=== PATIENT | male | born 1940 | race Caucasian/White ===

== ENCOUNTER → 2022-08-27 | Outpatient (CLI) | payer MEDICARE ==
--- NOTE | 2022-08-27 11:56 | MR ---
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 FINDINGS: Diffusion weighted images demonstrate no evidence of a recent infarct or other diffusion abnormality. There is mild to moderate ventricular and sulcal prominence. There are scattered foci of T2 hyperinte nsity seen throughout the white matter bilaterally. Approximately 20-25 small scattered lesions are s een. Lesions are nonspecific in appearance and distribution. T2 Star weighted images show no suspicio us intraparenchymal blood product. Bilateral basal ganglia calcifications are suspected but should be correlated with CT to confirm. Midline structures demonstrate normal morphology. The craniocervical junction appears within normal limits. Normal vascular flow voids are present. The visualized sinuses are clear and the globes are i ntact. IMPRESSION: Mild to moderate diffuse cerebral atrophy and chronic small vessel ischemic change is pre sent.
== END | disposition home or self-care (01) ==
LOC: RADMRIMAIN 10:52
PROVIDERS: ATTEND Psychiatry & Neurology Neurology
DX: G31.9 Degenerative disease of nervous system, unspecified (principal); I67.82 Cerebral ischemia; I63.00 Cerebral infarction due to thrombosis of unspecified precerebral artery
CPT/HCPCS: 70551

== ENCOUNTER 2023-12-13 10:28 | Emergency (ER) | payer MEDICARE ==
[2023-12-13 11:09] LABS: Basophils # (A) 0.1 k/uL (0-0.2); Basophils % (A) 1 %; Eosinophils # (A) 0.3 k/uL (0-0.7); Eosinophils % (A) 3 %; HCT 43.5 % (39.0-53.0); HGB 14.6 gm/dL (13.0-17.5); Lymphocytes # (A) 0.7 k/uL (1.0-4.8); Lymphocytes % (A) 6 %; MCH 28.5 pg (25.0-35.0); MCHC 33.6 g/dL (31.0-37.0); MCV 84.7 fL (80.0-100.0); Mean Platelet Volume 7.5; Monocytes # (A) 0.6 k/uL (0-1.0); Monocytes % (A) 6 %; Neutrophils # (A) 8.8 k/uL (1.3-7.7); Neutrophils % (A) 84 %; Platelet Count 151 k/uL (150-450); RBC 5.14 m/uL (4.30-5.90); RDW 13.3 % (11.5-15.5); WBC 10.5 k/uL (3.8-10.6)
[2023-12-13 11:19] LABS: ALT 17 U/L (4-49); AST 29 U/L (17-59); African American GFR (CKD) >90 (>60 ml/min/1.73 sqM); Albumin 3.6 g/dL (3.5-5.0); Alkaline Phosphatase 96 U/L (38-126); Anion Gap 7 mmol/L; Blood Urea Nitrogen 12 mg/dL (9-20); Calcium 8.6 mg/dL (8.4-10.2); Carbon Dioxide 25 mmol/L (22-30); Chloride 97 mmol/L (98-107); Glucose 117 mg/dL (74-99); Magnesium 1.7 mg/dL (1.6-2.3); Non-African American GFR(CKD) 83 (>60 ml/min/1.73 sqM); Potassium 4.1 mmol/L (3.5-5.1); Sodium 129 mmol/L (137-145); Total Bilirubin 1.4 mg/dL (0.2-1.3)
--- NOTE | 2023-12-13 11:31 | ED ---
General Adult HPI - General Chief complaint: Weakness Stated complaint: Syncope with Fall Time Seen by Provider: 12/13/23 10:40 Source: patient, EMS, RN notes reviewed, old records reviewed Mode of arrival: EMS Limitations: no limitations - History of Present Illness Initial comments: This is an 83-year-old male who presents to the emergency department complaining of syncopal episode after getting out of the shower. Patient states he got other shower was a very hot shower he felt a little lightheaded when he started to fix his hair when he thought he might pass out so he sat down and then shortly thereafter he passed out it was only unresponsive for a couple of seconds. Patient denies any headache patient denies numbness weakness. Patient denies any chest pain palpitations difficulty breathing or shortness of breath at any time. Patient Nuys any recent fever chills or cough or patient denies is any recent nausea vomiting diarrhea. Patient denies any other symptoms at this time and in fact currently he is asymptomatic. Patient's heart rate while speaking to him got down to 36 at at 1 point in time. Patient states that he took his verapamil an hour and a half prior to taking a shower. - Related Data Home Medications Medication Instructions Recorded Confirmed Aspirin EC [Ecotrin Low Dose] 81 mg PO DAILY 06/28/16 12/13/23 [place]-3 Fatty Acids/Fish Oil [Fish 2 cap PO DAILY 06/28/16 12/13/23 Oil 1,000 mg Softgel] Donepezil HCl [Aricept] 20 mg PO DAILY 12/13/23 12/13/23 Finasteride [Proscar] 5 mg PO DAILY 12/13/23 12/13/23 Losartan Potassium [Cozaar] 100 mg PO DAILY 12/13/23 12/13/23 Meclizine [Antivert] 25 mg PO Q8H PRN 12/13/23 12/13/23 Potassium Chloride ER [K-Dur 10] 10 meq PO BID 12/13/23 12/13/23 Tamsulosin [Flomax] 0.4 mg PO DAILY 12/13/23 12/13/23 Verapamil Sr [Isoptin Sr] 240 mg PO DAILY 12/13/23 12/13/23 Previous Rx's Medication Instructions Recorded Verapamil Sr [Isoptin Sr] 120 mg PO DAILY #10 tab 12/13/23 Allergies Allergy/AdvReac Type Severity Reaction Status Date / Time Penicillins AdvReac Nausea & Verified 12/13/23 11:38 Vomiting, Hives Review of Systems ROS Statement: Those systems with pertinent positive or pertinent negative responses have been documented in the HPI. ROS Other: All systems not noted in ROS Statement are negative. Past Medical History Past Medical History: Eye Disorder, Hypertension, Osteoarthritis (OA) Additional Past Medical History / Comment(s): Chronic diverticulosis and polyps, L eye blindness. History of Any Multi-Drug Resistant Organisms: None Reported Past Surgical History: Appendectomy, Bowel Resection Additional Past Surgical History / Comment(s): 07/10/16 Low anterior resection. Other surgical hx: varicose veins on penis with stripping, cyst on tailbone removed in the 's, COLONOSCOPY Past Anesthesia/Blood Transfusion Reactions: No Reported Reaction Past Psychological History: No Psychological Hx Reported Smoking Status: Never smoker Past Alcohol Use History: None Reported Past Drug Use History: None Reported - Past Family History Brother(s) Family Medical History: Cancer Additional Family Medical History / Comment(s): STOMACH CANCER General Exam - General Exam Comments Initial Comments: GENERAL: Patient is well-developed and well-nourished. Patient is nontoxic and well- hydrated and is in no acute distress. ENT: Neck is soft and supple. No significant lymphadenopathy is noted. Oropharynx is clear. Moist mucous membranes. Neck has full range of motion without eliciting any pain. EYES: The sclera were anicteric and conjunctiva were pink and moist. Extraocular movements were intact and pupils were equal round and reactive to light. Eyelids were unremarkable. PULMONARY: Unlabored respirations. Good breath sounds bilaterally. No audible rales rhonchi or wheezing was noted. CARDIOVASCULAR: There is a regular rate and rhythm without any murmurs gallops or rubs. ABDOMEN: Soft and nontender with normal bowel sounds. SKIN: Skin is clear with no lesions or rashes and otherwise unremarkable. NEUROLOGIC: Patient is alert and oriented x3. Cranial nerves II through XII are grossly intact. Motor and sensory are also intact. Normal speech, volume and content. Symmetrical smile. MUSCULOSKELETAL: Normal extremities with adequate strength and full range of motion. No lower extremity swelling or edema. No calf tenderness. LYMPHATICS: No significant lymphadenopathy is noted PSYCHIATRIC: Normal psychiatric evaluation. 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 Patient EKG shows no ST segment elevation or depression Was pt. sent in by a medical professional or institution (SHAQUILLE Santoro, FULFILLMENT ASSOCIATE, urgent care, hospital, or senior living...) When possible be specific @ -No Did you speak to anyone other than the patient for history (EMS, parent, family, police, friend...)? What history was obtained from this source @ -No Did you review nursing and triage notes (agree or disagree)? Why? @ -I reviewed and agree with nursing and triage notes Were old charts reviewed (outside hosp., previous admission, EMS record, old EKG, old radiological studies, urgent care reports/EKG's, senior living records)? Report findings @ -I compared this old lab work particular sodium with his prior studies. I also reviewed prior charts and prior EKGs. Differential Diagnosis (chest pain, altered mental status, abdominal pain women, abdominal pain men, vaginal bleeding, weakness, fever, dyspnea, syncope, headache, dizziness, GI bleed, back pain, seizure, CVA, palpatations, mental health, musculoskeletal)? @ -Not applicable EKG interpreted by me (3pts min.). @ -As above X-rays interpreted by me (1pt min.). @ -Chest x-ray showed no acute abnormality CT interpreted by me (1pt min.). @ -None done U/S interpreted by me (1pt. min.). @ -None done What testing was considered but not performed or refused? (CT, X-rays, U/S, labs)? Why? @ -None What meds were considered but not given or refused? Why? @ -None Did you discuss the management of the patient with other professionals (professionals i.e. SHAQUILLE Santoro, FULFILLMENT ASSOCIATE, lab, RT, psych nurse, social work nurse, welfare officer, teacher, fare enforcement officer, block and case maker)? Give summary @ -No Was smoking cessation discussed for >3mins.? @ -No Was critical care preformed (if so, how long)? @ -No Were there social determinants of health that impacted care today? How? (Homelessness, low income, unemployed, alcoholism, drug addiction, transportation, low edu. Level, literacy, decrease access to med. care, nursing home, rehab)? @ -No Was there de-escalation of care discussed even if they declined (Discuss DNR or withdrawal of care, Hospice)? DNR status @ -No What co-morbidities impacted this encounter? (DM, HTN, Smoking, COPD, CAD, Cancer, CVA, ARF, Chemo, Hep., AIDS, mental health diagnosis, sleep apnea, morbid obesity)? @ -None Was patient admitted / discharged? Hospital course, mention meds given and route, prescriptions, significant lab abnormalities, going to OR and other pertinent info. @ -Patient remained asymptomatic throughout his ED course. Patient was given a liter of normal saline sodium was 129 he had been as low as 130 in the past as well. Patient had no more episodes of bradycardia down into the 40s or 30s in his ED stay. Undiagnosed new problem with uncertain prognosis? @ -No Drug Therapy requiring intensive monitoring for toxicity (Heparin, Nitro, Insulin, Cardizem)? @ -No Were any procedures done? @ -No Diagnosis/symptom? @ -Syncopal episode Acute, or Chronic, or Acute on Chronic? @ -Acute Uncomplicated (without systemic symptoms) or Complicated (systemic symptoms)? @ -Complicated Side effects of treatment? @ -No Exacerbation, Progression, or Severe Exacerbation? @ -No Poses a threat to life or bodily function? How? (Chest pain, [place], ND, pneumonia, PE, COPD, DKA, ARF, appy, cholecystitis, CVA, Diverticulitis, Homicidal, Suicid al, threat to staff... and all critical care pts) @ -No Diagnosis/symptom? @ -Hyponatremia Acute, or Chronic, or Acute on Chronic? @ -Acute Uncomplicated (without systemic symptoms) or Complicated (systemic symptoms)? @ -Complicated Side effects of treatment? @ -None Exacerbation, Progression, or Severe Exacerbation] @ -No Poses a threat to life or bodily function? @ -No Diagnosis/symptom? @ -Bradycardia Acute, or Chronic, or Acute on Chronic? @ -Acute Uncomplicated (without systemic symptoms) or Complicated (systemic symptoms)? @ -Complicated Side effects of treatment? @ -None Exacerbation, Progression, or Severe Exacerbation] @ -No Poses a threat to life or bodily function? @ -No - Lab Data Result diagrams: 12/13/23 10:56 12/13/23 10:56 Lab Results 12/13/23 12/13/23 12/13/23 Range/Units 10:56 10:56 10:56 WBC 10.5 (3.8-10.6) k/uL RBC 5.14 (4.30-5.90) m/uL Hgb 14.6 (13.0-17.5) gm/dL Hct 43.5 (39.0-53.0) % MCV 84.7 (80.0-100.0) fL MCH 28.5 (25.0-35.0) pg MCHC 33.6 (31.0-37.0) g/dL RDW 13.3 (11.5-15.5) % Plt Count 151 (150-450) k/uL MPV 7.5 Neutrophils % 84 % Lymphocytes % 6 % Monocytes % 6 % Eosinophils % 3 % Basophils % 1 % Neutrophils # 8.8 H (1.3-7.7) k/uL Lymphocytes # 0.7 L (1.0-4.8) k/uL Monocytes # 0.6 (0-1.0) k/uL Eosinophils # 0.3 (0-0.7) k/uL Basophils # 0.1 (0-0.2) k/uL Sodium 129 L (137-145) mmol/L Potassium 4.1 (3.5-5.1) mmol/L Chloride 97 L (98-107) mmol/L Carbon Dioxide 25 (22-30) mmol/L Anion Gap 7 mmol/L BUN 12 (9-20) mg/dL Creatinine 0.80 (0.66-1.25) mg/dL Est GFR (CKD-EPI)AfAm >90 (>60 ml/min/1.73 sqM) Est GFR (CKD-EPI)NonAf 83 (>60 ml/min/1.73 sqM) Glucose 117 H (74-99) mg/dL Calcium 8.6 (8.4-10.2) mg/dL Magnesium 1.7 (1.6-2.3) mg/dL Total Bilirubin 1.4 H (0.2-1.3) mg/dL AST 29 (17-59) U/L ALT 17 (4-49) U/L Alkaline Phosphatase 96 (38-126) U/L Troponin I <0.012 (0.000-0.034) ng/mL Total Protein 6.0 L (6.3-8.2) g/dL Albumin 3.6 (3.5-5.0) g/dL Disposition Clinical Impression: Bradycardia, Syncope, Hyponatremia Disposition: HOME SELF-CARE Condition: Good Instructions (If sedation given, give patient instructions): Bradycardia (ED), Hyponatremia (ED), Syncope (ED) Prescriptions: Verapamil Sr [Isoptin Sr] 120 mg PO DAILY #10 tab Is patient prescribed a controlled substance at d/c from ED?: No Referrals: Natanael Donnelly MD [Primary Care Provider] - 1-2 days Time of Disposition: 12:19
--- NOTE | 2023-12-13 11:47 | XR ---
EXAMINATION TYPE: XR chest 2V DATE OF EXAM: 12/13/2023 11:20 AM CLINICAL INDICATION:Male, 83 years old with history of Chest Pain; COMPARISON: None TECHNIQUE: XR chest 2V Frontal and lateral views of the chest. FINDINGS: Lungs/Pleura: There is no evidence of pleural effusion, focal consolidation, or pneumothorax. Pulmonary vascularity: Unremarkable. Heart/mediastinum: Cardiomediastinal silhouette is unremarkable. Musculoskeletal: No acute osseous pathology. IMPRESSION: No acute cardiopulmonary disease/process.
[2023-12-13] MEDS: SODIUM CHLORIDE 0.9% 1,000 ML IV ONE (12:30)
[2023-12-13 12:54] VITALS: RESP 18
[2023-12-13 13:34] VITALS: BP 146/58; PULSE 54; TEMP 98.2
== END 2023-12-13 13:30 | disposition home or self-care (01) ==
LOC: EC 10:28
DX: E87.1 Hypo-osmolality and hyponatremia (principal); R00.1 Bradycardia, unspecified; R55 Syncope and collapse; Z88.0 Allergy status to penicillin
CPT/HCPCS: 36415; 71046; 80053; 83735; 84484; 85025; 93005; 96360; 99285

== ENCOUNTER → 2024-02-04 | Outpatient (CLI) | payer MEDICARE ==
--- NOTE | 2024-03-10 01:42 | EM ---
EVENT MONITOR The patient was monitored between February 04, 2024 and March 04, 2024. The rhythm strip revealed a sinus mechanism. The average rate 76 beats per minute, minimum 50, maximum 123 beats per minute. Ventricular ectopic 2 burden was 2% and no atrial fibrillation was noted. No pauses were documented. No symptoms were reported. MMLION / ERWIN: [id number] /
== END | disposition home or self-care (01) ==
LOC: RADECHMAIN 08:10
PROVIDERS: ATTEND Psychiatry & Neurology Neurology
DX: R55 Syncope and collapse (principal); I49.9 Cardiac arrhythmia, unspecified
CPT/HCPCS: 93270

== ENCOUNTER → 2024-08-19 | Outpatient (CLI) | payer MEDICARE ==
[2024-08-19 15:51] LABS: HCT 46.6 % (39.6-50.0); HGB 14.8 g/dL (13.0-17.0); MCH 27.2 pg (27.0-32.0); MCHC 31.8 g/dL (32.0-37.0); MCV 85.7 FL (80.0-97.0); Mean Platelet Volume 9.5 FL (9.5-12.2); NRBC Per 100 WBC 0 X 10*3/uL (0.00-0.01); Platelet Count 219 X 10*3/uL (140-440); RBC 5.44 X 10*6/uL (4.40-5.60); RDW 12.9 % (11.5-14.5); WBC 7.53 X 10*3/uL (4.50-10.00)
[2024-08-19 17:18] LABS: ALT 11 U/L (10-49); AST 17 U/L (14-35); Albumin 4.2 g/dL (3.8-4.9); Alkaline Phosphatase 103 U/L (41-126); BUN/Creat Ratio 12.67 Ratio (12.00-20.00); Blood Urea Nitrogen 11.4 mg/dL (9.0-27.0); Calcium 9.3 mg/dL (8.7-10.3); Carbon Dioxide 27.3 mmol/L (21.6-31.8); Chloride 97 mmol/L (96-109); Chol/HDL Ratio 3.65 Ratio; Globulin 2.1 g/dL (1.6-3.3); Glucose 98 mg/dL (70-110); LDL Cholesterol,Calculated 115.9 mg/dL (0.0-131.0); Potassium 3.9 mmol/L (3.5-5.5); Prostate Specific Antigen 0.43 ng/mL (0.000-6.500); Sodium 136 mmol/L (135-145); Total Protein 6.3 g/dL (6.2-8.2)
== END | disposition home or self-care (01) ==
LOC: LABWHC1 08:26
PROVIDERS: ATTEND Family Medicine
DX: Z00.01 Encounter for general adult medical examination with abnormal findings (principal); N40.1 Benign prostatic hyperplasia with lower urinary tract symptoms; E66.3 Overweight; R53.83 Other fatigue
CPT/HCPCS: 36415; 80053; 80061; 84153; 85027